=== PATIENT | female | born 1980 | race Caucasian/White ===

== ENCOUNTER 2020-05-17 16:02 | Emergency (ER) | payer OTHER ==
[~2020-05-17] VITALS: Ht 165.1 cm; Wt 77.1 kg
[2020-05-17 16:10] VITALS: Ht 165.1 cm; Wt 77.1 kg
[2020-05-17 19:30] VITALS: BP 120/80
== END 2020-05-17 19:30 | disposition home or self-care (01) ==
LOC: ED 16:02
DX: S09.8XXA Other specified injuries of head, initial encounter (principal); M85.672 Other cyst of bone, left ankle and foot; M25.511 Pain in right shoulder; Z20.828 Contact with and (suspected) exposure to other viral communicable diseases; W01.0XXA Fall on same level from slipping, tripping and stumbling without subsequent striking against object, initial encounter; Y93.89 Activity, other specified; Y92.89 Other specified places as the place of occurrence of the external cause; Y99.8 Other external cause status
CPT/HCPCS: Q0092; U0003-CS